=== PATIENT | male | born 1985 | race Caucasian/White ===

== ENCOUNTER 2018-02-23 21:43 | Emergency (ER) | payer MEDICAID, OTHER ==
[2018-02-23] MEDS: ONDANSETRON (ODT) 4 MG TAB ODT (23:58)
[2018-02-23] MEDS: HYDROCODONE/APAP (10/325) TAB PO (23:58)
== END 2018-02-24 01:06 | disposition home or self-care (01) ==
LOC: E/R 02-24 01:06
DX: M10.9 Gout, unspecified (principal)
CPT/HCPCS: 73620; 93971; 99284-25